=== PATIENT | male | born 2000 | race Caucasian/White ===

== ENCOUNTER 2022-06-02 15:55 | Emergency (ER) | payer OTHER ==
[2022-06-02] MEDS ORDERED: IBUPROFEN 200 MG TAB PO ONE (16:24)
[2022-06-02] MEDS ORDERED: ONDANSETRON 4 MG (ODT) TAB ONE (16:27)
--- NOTE | 2022-06-02 17:31 | EDPHYS ---
Physician Documentation [facility] Name: Jose Raul Ridley III Age: 22 yrs Sex: Male : 2000 Arrival Date: 06/02/2022 Time: 15:58 Bed 9 Private MD: ED Physician Palmira Perez HPI: 06/02 17:29 This 22 yrs old Male presents to ER via Ambulatory with complaints of Fever, Cough, kb Vomiting. 17:29 The patient or guardian reports cough, flu symptoms, low-grade fever, myalgias. Onset: kb The symptoms/episode began/occurred this morning. Severity of symptoms: At their worst the symptoms were moderate, in the emergency department the symptoms are unchanged. Modifying factors: The symptoms are alleviated by nothing, the symptoms are aggravated by nothing. Associated signs and symptoms: Pertinent positives: fever. The patient has not experienced similar symptoms in the past. The patient has not recently seen a physician. Pt reports cough, fever, bodyaches, and headache that started this morning. . Historical: - Allergies: 16:22 No Known Allergies; hb - Home Meds: 16:22 None [Active]; hb - PMHx: 16:22 None; hb - PSHx: 16:22 None; hb - Immunization history:: Adult Immunizations up to date, Client reports having NOT received the Covid vaccine. - Social history:: Smoking status: Patient reports the use of cigarette tobacco products, daily, Patient uses alcohol, weekly. ROS: 17:27 Cardiovascular: Negative for chest pain, palpitations, and edema. kb 17:27 Constitutional: Positive for body aches, chills, fatigue, fever, malaise. 17:27 Respiratory: Positive for cough, Negative for dyspnea on exertion, hemoptysis, orthopnea, pleurisy, shortness of breath, sputum production, wheezing. 17:27 Neuro: Positive for headache. 17:27 All other systems are negative. Exam: 17:27 Constitutional: This is a well developed, well nourished patient who is awake, alert, kb and in no acute distress. Head/Face: Normocephalic, atraumatic. ENT: Moist Mucous membranes Cardiovascular: Regular rate and rhythm with a normal S1 and S2. No gallops, murmurs, or rubs. No pulse deficits. Respiratory: Respirations even and unlabored. No increased work of breathing. Talking in full sentences Abdomen/GI: Soft, non-tender. No distention Skin: Warm, dry with normal turgor. Normal color. MS/ Extremity: Pulses equal, no cyanosis. Neurovascular intact. Full, normal range of motion. Neuro: Awake and alert, GCS 15, oriented to person, place, time, and situation. Moves all extremities. Normal gait. Vital Signs: 16:15 Temp 101.0(O); Weight 99.79 kg; Height 5 ft. 8 in. (172.72 cm); hb 16:28 BP 124 / 77; Pulse 112; Resp 18; Pulse Ox 100% on R/A; Pain 5/10; hb 16:15 Body Mass Index 33.45 (99.79 kg, 172.72 cm) hb MDM: 16:13 Patient medically screened. kb 17:27 Data reviewed: vital signs, nurses notes. Data interpreted: Pulse oximetry: on room air kb is 100 %. Interpretation: normal. Counseling: I had a detailed discussion with the patient and/or guardian regarding: the historical points, exam findings, and any diagnostic results supporting the discharge/admit diagnosis, lab results, the need for outpatient follow up, a family practitioner, to return to the emergency department if symptoms worsen or persist or if there are any questions or concerns that arise at home. 06/02 16:14 Order name: Flu; Complete Time: 16:57 kb 06/02 16:14 Order name: COVID-19 SARS RT PCR (Document "Date of Onset" if Symptomatic); Complete kb Time: 17:27 Administered Medications: 16:29 Drug: Ibuprofen 600 mg Route: PO; hb 17:30 Follow up: Response: No adverse reaction hb 16:29 Drug: Ondansetron 4 mg Route: PO; hb 17:22 Follow up: Response: No adverse reaction hb Disposition Summary: 06/02/22 17:30 Discharge Ordered Location: Home kb Condition: Stable kb Diagnosis - Influenza due to identified novel influenza A virus kb Followup: kb - With: Emergency Department - When: As needed - Reason: Worsening of condition Followup: kb - With: Private Physician - When: 2 - 3 days - Reason: Recheck today's complaints, Continuance of care, Re-evaluation by your physician Discharge Instructions: - Discharge Summary Sheet kb - Influenza, Adult, [id number] kb Forms: - Medication Reconciliation Form kb - Thank You Letter kb - Antibiotic Education kb - Prescription Opioid Use kb - Work release form Prescriptions: - Zofran 4 mg Oral Tablet - take 1 tablet by ORAL route every 8 hours As needed; 10 tablet; Refills: 0, kb Product Selection Permitted - Tamiflu 75 mg Oral Capsule - take 1 tablet by ORAL route every 12 hours for 5 days; 10 tablet; Refills: 0, kb Product Selection Permitted Signatures: Dispatcher [employer] Myah Marks, PHOTOCOPYING EQUIPMENT MECHANIC-C PHOTOCOPYING EQUIPMENT MECHANIC-Darrynb Soni Benites, RN RN
--- NOTE | 2022-06-02 17:31 | ER ---
Nurse's Notes [facility] Name: Jose Raul Ridley III Age: 22 yrs Sex: Male : 2000 Arrival Date: 06/02/2022 Time: 15:58 Bed 9 Private MD: Diagnosis: Influenza due to identified novel influenza A virus Presentation: 06/02 16:15 Chief complaint: Cough, fever, headache, and body aches since this morning. Coronavirus hb screen: Client presents with at least one sign or symptom that may indicate coronavirus-19. Standard/surgical mask placed on the client. Provider contacted for isolation considerations. Ebola Screen: No symptoms or risks identified at this time. Initial Sepsis Screen:. Risk Assessment: Do you want to hurt yourself or someone else? Patient reports no desire to harm self or others. Onset of symptoms was June 02, 2022. 16:15 Method Of Arrival: Ambulatory hb 16:15 Acuity: KRIS 4 hb 16:16 Initial Sepsis Screen: Does the patient meet any 2 criteria? No. Patient's initial hb sepsis screen is negative. Does the patient have a suspected source of infection? No. Patient's initial sepsis screen is negative. Historical: - Allergies: 16:22 No Known Allergies; hb - Home Meds: 16:22 None [Active]; hb - PMHx: 16:22 None; hb - PSHx: 16:22 None; hb - Immunization history:: Adult Immunizations up to date, Client reports having NOT received the Covid vaccine. - Social history:: Smoking status: Patient reports the use of cigarette tobacco products, daily, Patient uses alcohol, weekly. Screenin:40 Abuse screen: Denies threats or abuse. Denies injuries from another. Nutritional hb screening: No deficits noted. Tuberculosis screening: No symptoms or risk factors identified. Fall Risk None identified. Assessment: 16:35 General: Appears in no apparent distress. Behavior is calm, cooperative. Pain: Pain hb currently is 5 out of 10 on a pain scale. Neuro: Level of Consciousness is awake, alert, obeys commands, Oriented to person, place, time, situation. Cardiovascular: Patient's skin is warm and dry. Respiratory: Reports cough that is Respiratory effort is even, unlabored, Respiratory pattern is regular, symmetrical. GI: Reports nausea. : No signs and/or symptoms were reported regarding the genitourinary system. EENT: No signs and/or symptoms were reported regarding the EENT system. Derm: Skin is pink, warm \\T\\ dry. Musculoskeletal: No signs and/or symptoms reported regarding the musculoskeletal system. 17:35 Reassessment: Patient appears in no apparent distress at this time. Patient and/or hb family updated on plan of care and expected duration. Pain level reassessed. Patient is alert, oriented x 3, equal unlabored respirations, skin warm/dry/pink. Vital Signs: 16:15 Temp 101.0(O); Weight 99.79 kg; Height 5 ft. 8 in. (172.72 cm); hb 16:28 BP 124 / 77; Pulse 112; Resp 18; Pulse Ox 100% on R/A; Pain 5/10; hb 16:15 Body Mass Index 33.45 (99.79 kg, 172.72 cm) hb ED Course: 15:58 Patient arrived in ED. rg4 15:58 Myah Nieves FNP-C is [facility]. kb 15:58 Palmira Perez MD is Attending Physician. kb 16:21 Triage completed. hb 16:22 Soni Benites, RN is Primary Nurse. hb 16:22 Arm band placed on. hb 16:22 COVID-19 SARS RT PCR (Document "Date of Onset" if Symptomatic) Sent. hb 16:22 Flu Sent. hb 17:30 Patient has correct armband on for positive identification. hb 17:40 No provider procedures requiring assistance completed. Patient did not have IV access hb during this emergency room visit. Administered Medications: 16:29 Drug: Ibuprofen 600 mg Route: PO; hb 17:30 Follow up: Response: No adverse reaction hb 16:29 Drug: Ondansetron 4 mg Route: PO; hb 17:22 Follow up: Response: No adverse reaction hb Medication: 17:30 VIS not applicable for this client. hb Outcome: 17:30 Discharge ordered by . kb 17:40 Discharged to home ambulatory. hb 17:40 Condition: stable 17:40 Discharge instructions given to patient, Instructed on discharge instructions, follow up and referral plans. medication usage, Demonstrated understanding of instructions, follow-up care, medications, Prescriptions given X 2. 17:46 Patient left the ED. hb Signatures: Myah Nieves FNP-C FNP-Ckb Soni Benites, RN RN hb Matias, Malka rg4
[2022-06-02 18:06] VITALS: TEMP 101
[2022-06-02 18:07] VITALS: BP 124/77; O2SAT 100
== END 2022-06-02 17:46 | disposition home or self-care (01) ==
LOC: ER 15:55
DX: J10.1 Influenza due to other identified influenza virus with other respiratory manifestations (principal); Z20.822 Contact with and (suspected) exposure to COVID-19; Z72.0 Tobacco use
CPT/HCPCS: 87804 ×2; 99283; U0003; Q0162